=== PATIENT | male | born 1990 | race Two or more races ===

== ENCOUNTER 2023-03-28 22:33 | Inpatient (IN) | payer OTHER ==
[~2023-03-28] VITALS: Ht 170.2 cm; Wt 81.8 kg
[2023-03-28 22:50] VITALS: PULSE 70; RESP 15; O2SAT 98
[2023-03-28 23:32] LABS: Basophils # (auto) 0 10 ^3/uL (0-0.2); Basophils % (auto) 0.2 % (0.0-2.0); Eosinophils # (auto) 0 10 ^3/uL (0-0.8); Eosinophils % (auto) 0.3 % (0.0-7.0); Hemoglobin 16.1 g/dL (13.5-17.5); Lymphocytes % (auto) 16.6 % (10.0-50.0); Mean Corpuscular Hemoglobin 29.6 pg (28.0-32.0); Mean Corpuscular Hgb Conc. 33.5 g/dL (32.0-36.0); Mean Corpuscular Volume 88.5 fL (80.0-100.0); Monocytes # (auto) 0.9 10 ^3/uL (0-1.3); Monocytes % (auto) 7.4 % (0.0-12.0); Neutrophils # (auto) 9.2 10 ^3/uL (1.6-8.6); Neutrophils % (auto) 75.5 % (37.0-80.0); Nucleated Red Blood Cells % 0.1 %; Red Blood Cells 5.42 10^6/uL (4.5-5.90); Red Cell Distribution Width 13.4 % (11.8-14.3); White Blood Cell 12.2 10^3/uL (4.4-10.8)
[2023-03-28] MEDS: NITROGLYCERIN 0.4 MG SL TAB SL ONE (23:44)
[2023-03-28] MEDS ORDERED: SODIUM CHLORIDE 0.9% 1,000 ML IV ONE (23:45)
[2023-03-28 23:48] LABS: Alanine Aminotransferase 120 U/L (7-40); Alkaline Phosphatase 88 U/L (46-116); Anion Gap 6 (5-15); Aspartate Aminotransferase 68 U/L (13-40); BUN/Creatinine Ratio 11.1 (10.0-20.0); Bilirubin, Total 0.7 mg/dL (0.2-1.0); Blood Urea Nitrogen 12 mg/dL (9-23); Calcium 10.3 mg/dL (8.7-10.4); Carbon Dioxide 31 mmol/L (20-30); Chloride 104 mmol/L (98-107); Glucose 99 mg/dL (74-106); Lipase 43 U/L (12-53); Potassium 4.6 mmol/L (3.5-5.1); Sodium 141 mmol/L (136-145); Total Protein 8.4 g/dL (5.7-8.2)
[2023-03-28] MEDS: GLUCAGON EMERG KIT 1mg/1ml IV ONE (23:55)
[2023-03-28] MEDS: ONDANSETRON HCL 4 MG/2 ML VIAL IV ONE (23:56)
[2023-03-28 23:59] LABS: Albumin 5.8 g/dL (3.2-4.8)
[2023-03-29] MEDS: ONDANSETRON HCL 4 MG/2 ML VIAL IV ONE (01:08)
[2023-03-29] MEDS: NITROGLYCERIN 0.4 MG SL TAB SL ONE (01:12)
[2023-03-29] MEDS ORDERED: LORazepam 2MG/ML-1ML VIAL IV ONE (01:15)
[2023-03-29] MEDS ORDERED: PANTOPRAZOLE 40 MG/10 ML VIAL INJ IV ONE (01:15)
[2023-03-29] MEDS: GLUCAGON EMERG KIT 1mg/1ml IV ONE (01:29)
[2023-03-29] MEDS ORDERED: SODIUM CHLORIDE 0.9% 1,000 ML IV SCH (04:00)
[2023-03-29] MEDS ORDERED: ONDANSETRON HCL 4 MG/2 ML VIAL IV PRN (04:00)
[2023-03-29] MEDS ORDERED: ONDANSETRON HCL 4 MG/2 ML VIAL ONE (07:30)
[2023-03-29] MEDS ORDERED: PROPOFOL 10 MG/ML 20 ML IV ONE (07:30)
[2023-03-29] MEDS ORDERED: GLYCOPYRROLATE 0.2 MG/ML 1ML VIAL ONE (07:30)
[2023-03-29] MEDS ORDERED: LIDOCAINE 2% (LOCAL ANESTH.) PF 5ml SDV ONE (07:30)
[2023-03-29] MEDS ORDERED: DexAMETHasone SOD PHOS 10MG/1ML VIAL INJ ONE (07:30)
[2023-03-29 08:30] VITALS: PULSE 108; RESP 12; TEMP 98.2; O2SAT 99
[2023-03-29 09:15] VITALS: PULSE 78; RESP 12; O2SAT 96
[2023-03-29] MEDS ORDERED: PANTOPRAZOLE 40 MG/10 ML VIAL INJ IV SCH (10:00)
[2023-03-29 10:15] VITALS: BP 123/76; PULSE 75; RESP 17; O2SAT 97
== END 2023-03-29 10:44 | disposition home or self-care (01) | DRG 394 ==
LOC: ER 22:33 → EDBD 22:33 → OVERFLOW 03-29 03:51
PROVIDERS: ADMIT Nurse Practitioner; ATTEND Internal Medicine
PROC: 0DB68ZX Excision of Stomach, Via Natural or Artificial Opening Endoscopic, Diagnostic (ICD-10-PCS; 2023-03-29)
PROC: 0DB48ZX Excision of Esophagogastric Junction, Via Natural or Artificial Opening Endoscopic, Diagnostic (ICD-10-PCS; 2023-03-29)
PROC: 0DB98ZX Excision of Duodenum, Via Natural or Artificial Opening Endoscopic, Diagnostic (ICD-10-PCS; principal; 2023-03-29 08:16)
DX: T18.128A Food in esophagus causing other injury, initial encounter (principal); K22.10 Ulcer of esophagus without bleeding; K56.49 Other impaction of intestine; K29.80 Duodenitis without bleeding; K29.90 Gastroduodenitis, unspecified, without bleeding; K44.9 Diaphragmatic hernia without obstruction or gangrene; R74.01 Elevation of levels of liver transaminase levels; R79.89 Other specified abnormal findings of blood chemistry
CPT/HCPCS: 36415; 80053; 83605; 83690; 84484; 85025; C9113; G0378; J1100; J2001; J2405; J2704